=== PATIENT | female | born 1985 | race Caucasian/White ===

== ENCOUNTER 2021-03-17 15:00 | Outpatient (CLI) | payer OTHER ==
--- NOTE | 2021-03-17 16:15 | MRI Report ---
PROCEDURE: Cervical Spine W/O INDICATIONS: CERVICAL RADICULOPATHY TECHNIQUE: Noncontrast sagittal T1 spin echo and T2 fast spin echo, sagittal STIR, foraminal oblique sagittal T2 fast spin echo, and axial gradient echo or T2 fast spin echo through the cervical spine. COMPARISON: None. FINDINGS: Image quality: Excellent. Alignment and Curvature: There is loss of normal cervical lordosis. Bone Marrow: Marrow demonstrates normal overall signal. Mild reactive signal within the end plates adjacent to the C5-C6 intervertebral discs. Spinal Cord: Visualized spinal cord has normal size and signal. No cerebellar tonsillar herniation. Paraspinous Soft Tissues: No paravertebral masses. Prevertebral soft tissues are normal in thicknes s. C2-C3: Normal in appearance. C3-C4: Normal in appearance. C4-C5: Normal in appearance. C5-C6: Mild disc desiccation and diffuse disc bulge with superimposed left paracentral protrusion. M oderate to severe canal stenosis. Mild left cord flattening. No foraminal stenosis. C6-C7: Mild disc desiccation and diffuse disc bulge. Mild facet and uncovertebral hypertrophy bilate rally to Mild canal stenosis. Mild bilateral foraminal stenosis. C7-T1: Normal in appearance. IMPRESSION: 1. Lower cervical degenerative disc and facet disease, as well as uncovertebral hypertrophy. 2. Moderate to severe canal stenosis at C5-C6 associated with mild cord flattening. Reviewed by: Darrion Archer MD on 03/17/2021 4:14 PM PST Approved by: Darrion Archer MD on 03/17/2021 4:14 PM PST Station ID: [id number]
== END 2021-03-17 15:01 | disposition home or self-care (01) ==
LOC: DI 15:00
DX: M47.22 Other spondylosis with radiculopathy, cervical region (principal); M48.02 Spinal stenosis, cervical region

== ENCOUNTER 2021-05-05 16:27 | Outpatient (CLI) | payer OTHER ==
--- NOTE | 2021-05-05 17:37 | XRAY Report ---
PROCEDURE: Cervical Spine Complete INDICATIONS: CERVICAL SPONDYLOSIS TECHNIQUE: 6 views of the cervical spine acquired. COMPARISON: MRI of cervical spine dated 03/17/2021. FINDINGS: Bones: No fractures or dislocations to the C7-T1 level. Straightening of normal cervical lordosis i s seen. Oblique images demonstrate no bony foraminal stenoses. Soft tissues: No prevertebral soft tissue swelling. IMPRESSION: Straightening of normal cervical lordosis. No compression fracture or spondylolisthesis. No significant bony foraminal stenosis on oblique views. Reviewed by: Gary Apodaca MD on 05/05/2021 5:36 PM PST Approved by: Gary Apodaca MD on 05/05/2021 5:36 PM PST Station ID: [id number]
== END 2021-05-05 16:28 | disposition home or self-care (01) ==
LOC: DI.N 16:27
PROVIDERS: ATTEND Neurological Surgery
DX: M47.22 Other spondylosis with radiculopathy, cervical region (principal)

== ENCOUNTER 2021-07-24 12:52 | Outpatient (CLI) | payer OTHER ==
--- NOTE | 2021-07-24 15:55 | CT Report ---
PROCEDURE: CERVICAL SPINE WO INDICATIONS: CERVICAL SPONDYLOSIS TECHNIQUE: Noncontrast 3 mm thick sections acquired from the skull base to the T4 level. Sagittal and coronal r eformats were then constructed. For radiation dose reduction, the following was used: automated exp osure control, adjustment of mA and/or kV according to patient size. COMPARISON: MRI cervical spine, 03/17/2021. X-ray cervical spine, 05/05/2021. FINDINGS: Image quality: Excellent. Bones: No fractures or dislocations. Mild posterior disc bulge at C5-C6 and C6-C7. Visualized superi or ribs are intact. Soft tissues: Prevertebral soft tissues are normal in thickness. No paravertebral hematomas. No ap ical pneumothoraces. IMPRESSION: Mild degenerative disc disease with posterior disc bulge at C5-C6 and C6-C7. Reviewed by: Edin Perez MD on 07/24/2021 2:54 PM [facility] Approved by: Edin Perez MD on 07/24/2021 2:54 PM [facility]DT Station ID: [id number]
== END 2021-07-24 12:53 | disposition home or self-care (01) ==
LOC: DI 12:52
PROVIDERS: ATTEND Neurological Surgery
DX: M50.322 Other cervical disc degeneration at C5-C6 level (principal)